=== PATIENT | female | born 1965 | race Caucasian/White ===

== ENCOUNTER 2022-04-09 16:56 | Emergency (ER) | payer SELFPAY ==
[~2022-04-09] VITALS: Ht 157.5 cm; Wt 72.6 kg
--- NOTE | 2022-04-09 17:40 | NUR ---
PT SEEN BY DR. ISLAS AT BEDSIDE
[2022-04-09] MEDS ORDERED: IBUPROFEN 600 MG TABLET ONE (17:52)
[2022-04-09] MEDS ORDERED: IBUPROFEN 600 MG TABLET PO ONE (18:00)
[2022-04-09] MEDS ORDERED: IBUP-1955 PO (18:11)
[2022-04-09 19:10] VITALS: BP 134/80
--- NOTE | 2022-04-09 19:11 | NUR ---
Patient discharged to home in stable condition. Written and verbal after care instructions given. Patient verbalizes understanding of instruction.
== END 2022-04-09 19:11 | disposition home or self-care (01) ==
LOC: ER 17:14
DX: S00.03XA Contusion of scalp, initial encounter (principal); S50.311A Abrasion of right elbow, initial encounter; S90.511A Abrasion, right ankle, initial encounter; I10 Essential (primary) hypertension; F32.A Depression, unspecified; W18.39XA Other fall on same level, initial encounter; Y93.01 Activity, walking, marching and hiking; Y92.89 Other specified places as the place of occurrence of the external cause; Y99.8 Other external cause status

== ENCOUNTER 2022-05-13 21:59 | Emergency (ER) | payer OTHER ==
[~2022-05-13] VITALS: Ht 157.5 cm; Wt 74.8 kg
[~2022-05-13 21:59] MED LIST: IBUP-1955 PO
--- NOTE | 2022-05-13 22:05 | NUR ---
TO ER BED 11. [id number] FROM HOME FOR SYNCOPAL EPISODE, FELT LIGHTHEADED S/P TAKING HER SLEEPING PILLS. PT IS ALERT AND ORIENTED. AMBULATORY WITH STEADY GAIT. CONNECTED TO MONITOR. AWAITING MD ORDERS
--- NOTE | 2022-05-13 22:24 | NUR ---
IV LINE ESTABLISHED [id number]
--- NOTE | 2022-05-13 22:24 | NUR ---
BLOOD COLLECTED AND SENT TO LAB
[2022-05-13] MEDS ORDERED: IV NS 0.9% 1,000 ML BAG IV ONE (22:30)
[2022-05-13 22:32] LABS: BASOPHILS % (AUTO) 0.9 % (0.0-2.0); EOSINOPHILS % (AUTO) 3.2 % (0.0-6.0); HEMATOCRIT 34 % (33-45); HEMOGLOBIN 11.6 g/dL (11.5-14.8); LYMPHOCYTES # (AUTO) 1.3 K/uL (0.8-4.8); LYMPHOCYTES % (AUTO) 28.1 % (20.0-44.0); MEAN CORPUSCULAR HGB CONC 34 g/dl (31.0-36.0); MEAN CORPUSCULAR VOLUME 93 fL (82-100); MONOCYTES # (AUTO) 0.5 K/uL (0.1-1.30); MONOCYTES % (AUTO) 11.3 % (2.0-12.0); NEUTROPHILS # (AUTO) 2.6 K/uL (1.8-8.9); NEUTROPHILS % (AUTO) 56.5 % (43.0-81.0); PLATELET COUNT (AUTO) 222 K/uL (150-450); RED BLOOD CELL COUNT(AUTO) 3.69 MIL/uL (4.0-5.2); WHITE BLOOD COUNT (AUTO) 4.6 K/uL (4.3-11.0)
[2022-05-13 22:54] LABS: CALCIUM, SERUM 8.4 mg/dL (8.5-10.1); CARBON DIOXIDE 27 mmol/L (21-32); CHLORIDE 99 mmol/L (98-107); CREATININE 0.8 mg/dL (0.6-1.3); GLUCOSE 93 mg/dL (74-106); POTASSIUM 3.3 mmol/L (3.5-5.1); SODIUM SERUM 132 mmol/L (136-145); UREA NITROGEN, BLOOD 10 mg/dL (7-18)
--- NOTE | 2022-05-13 23:50 | NUR ---
BIRD [phone] [facility], CALL WHEN PT IS DISCHARGED
--- NOTE | 2022-05-14 00:19 | NUR ---
LAB AT BEDSIDE
[2022-05-14] MEDS ORDERED: AMOX500T2 PO (02:01)
[2022-05-14 02:29] VITALS: BP 121/70
--- NOTE | 2022-05-14 02:29 | NUR ---
IV removed. Catheter intact and site benign. Pressure and 4x4 applied to site. No bleeding noted.
--- NOTE | 2022-05-14 02:29 | NUR ---
Patient discharged to home in stable condition. Written and verbal after care instructions given. Patient verbalizes understanding of instruction.
== END 2022-05-14 02:30 | disposition home or self-care (01) ==
LOC: ER 22:01
DX: J18.9 Pneumonia, unspecified organism (principal); R55 Syncope and collapse; I10 Essential (primary) hypertension; F32.A Depression, unspecified
CPT/HCPCS: 99285; 96360; 71045; 93005 ×2; 85025; 80048; 36415 ×2; 84484 ×2; J7030